=== PATIENT | male | born 1975 | race Caucasian/White ===

== ENCOUNTER 2020-10-09 07:00 | Outpatient (CLI) | payer OTHER | END 2020-10-09 23:59 | disposition home or self-care (01) | LOC: COV 07:00 | PROVIDERS: ATTEND Family Medicine | DX: R53.83 Other fatigue (principal); R68.83 Chills (without fever); J02.9 Acute pharyngitis, unspecified; Z20.822 Contact with and (suspected) exposure to COVID-19 ==

== ENCOUNTER 2024-02-09 15:30 | Outpatient (CLI) | payer OTHER | END 2024-02-09 15:45 | disposition home or self-care (01) | LOC: LAB.N 15:30 | PROVIDERS: ATTEND Physician Assistant Medical | DX: M17.11 Unilateral primary osteoarthritis, right knee (principal) | CPT/HCPCS: 36415; 84550 ==